=== PATIENT | male | born 1940 | race Caucasian/White ===

== ENCOUNTER 2023-05-14 12:15 | Emergency (ER) | payer MEDICARE, OTHER ==
[2023-05-14] MEDS: Iopamidol 612 MG/ML 100 ML Bottle IVPUSH ONE (12:28)
[2023-05-14 12:34] LABS: BASOPHILS PERCENT AUTO 0.3 % (0.0-1.0); EOSINOPHILS PERCENT AUTO 0.8 % (1.0-3.0); HEMATOCRIT 35.4 % (40.0-54.0); HEMOGLOBIN 11.7 g/dL (14.0-18.0); LYMPHOCYTES PERCENT AUTO 22.1 % (20.5-50.1); MEAN CORPUSCULAR HEMOGLOBIN 27.9 pg (27.0-34.0); MEAN CORPUSCULAR HGB CONC 33.1 g/dL (33.0-35.0); MEAN CORPUSCULAR VOLUME 84.5 fL (80-100); MONOCYTES PERCENT AUTO 17.1 % (2-8); NEUTROPHILS PERCENT AUTO 59.7 % (42.2-75.2); PLATELET COUNT,PLT 174 10^3/uL (150-450); RED BLOOD CELL COUNT 4.19 10^6/uL (4.6-6.2); WHITE BLOOD CELL COUNT,WBC 6.3 10^3/uL (5.0-10.0)
[2023-05-14 12:49] LABS: ALBUMIN 3.8 g/dL (3.4-5.0); ANION GAP 13.2 mEq/L (7-13); BILIRUBIN TOTAL 0.6 mg/dL (0.2-1.0); BUN/CREATININE RATIO 10.3 (No establ ref range); CREATININE 1.45 mg/dL (0.70-1.30); POTASSIUM,K 4.2 mmol/L (3.5-5.1); PROTEIN TOTAL,TP 7.5 g/dL (6.4-8.2)
[2023-05-14 12:54] LABS: EST CRCL DRUG DOSING (CG) 44.6 mL/min
[2023-05-14] MEDS: Sodium Chloride 0.9% 1,000 ML IV ONE (12:54)
[2023-05-14] MEDS: Ondansetron 4 MG/2 ML SDV IVPUSH ONE (12:54)
[2023-05-14] MEDS: fentaNYL 100 MCG/2 ML SDV IVPUSH ONE ×2 (12:54)
[2023-05-14] MEDS: Sodium Chloride 0.9% 10 ML Syringe FLUSH PRN (12:55)
== END 2023-05-14 15:21 ==
LOC: DL.ED 12:15
DX: S06.5X0A Traumatic subdural hemorrhage without loss of consciousness, initial encounter (principal); S37.092A Other injury of left kidney, initial encounter; Z95.1 Presence of aortocoronary bypass graft; Z79.82 Long term (current) use of aspirin; Z79.899 Other long term (current) drug therapy; V48.5XXA Car driver injured in noncollision transport accident in traffic accident, initial encounter; Y93.89 Activity, other specified
CPT/HCPCS: 36415; 51702; 70450; 71260; 72125; 72128; 72131; 74177; 80053; 85025; 96374; 96375; 99285; 99285-25; J2405; J3010; J3490; Q9967

== ENCOUNTER 2023-05-30 14:46 | Observation (INO) | payer MEDICARE, OTHER ==
[2023-05-30 15:40] LABS: BASOPHILS PERCENT AUTO 0.3 % (0.0-1.0); EOSINOPHILS PERCENT AUTO 1.4 % (1.0-3.0); HEMATOCRIT 31.8 % (40.0-54.0); HEMOGLOBIN 10.6 g/dL (14.0-18.0); LYMPHOCYTES PERCENT AUTO 25.1 % (20.5-50.1); MEAN CORPUSCULAR HEMOGLOBIN 27.7 pg (27.0-34.0); MEAN CORPUSCULAR HGB CONC 33.3 g/dL (33.0-35.0); MEAN CORPUSCULAR VOLUME 83.2 fL (80-100); MONOCYTES PERCENT AUTO 23.1 % (2-8); NEUTROPHILS PERCENT AUTO 50.1 % (42.2-75.2); PLATELET COUNT,PLT 232 10^3/uL (150-450); RED BLOOD CELL COUNT 3.82 10^6/uL (4.6-6.2); WHITE BLOOD CELL COUNT,WBC 6.5 10^3/uL (5.0-10.0)
[2023-05-30 15:54] LABS: A/G RATIO 0.9; ALBUMIN 3.5 g/dL (3.4-5.0); ANION GAP 12.8 mEq/L (7-13); BILIRUBIN TOTAL 0.4 mg/dL (0.2-1.0); BUN/CREATININE RATIO 12.1 (No establ ref range); CALCIUM 8.9 mg/dL (8.5-10.1); CREATININE 1.4 mg/dL (0.70-1.30); EST CRCL DRUG DOSING (CG) 42.08 mL/min; POTASSIUM,K 3.8 mmol/L (3.5-5.1); PROTEIN TOTAL,TP 7.2 g/dL (6.4-8.2)
[2023-05-30] MEDS ORDERED: Ondansetron 4 MG/2 ML SDV IVPUSH PRN (17:25)
[2023-05-30] MEDS ORDERED: Magnesium Hydroxide 400 MG/5 ML Susp 30 ML Cup PO PRN (17:25)
[2023-05-30] MEDS ORDERED: Albuterol/Ipratropium 3.0-0.5 MG/3 ML Neb Soln NEB PRN (17:25)
[2023-05-30] MEDS ORDERED: HYDROmorphone 0.5 MG/0.5 ML Syringe IVPUSH PRN (17:25)
[2023-05-30] MEDS ORDERED: Sodium Chloride 0.9% 10 ML Syringe FLUSH PRN (17:25)
[2023-05-30] MEDS ORDERED: Polyethylene Glycol 3350 Powder 17 GM Packet PO PRN (17:25)
[2023-05-30] MEDS ORDERED: Sennosides/Docusate Sodium 50-8.6 MG Tab PO PRN (17:25)
[2023-05-30] MEDS ORDERED: Naloxone 2 MG/2 ML Syringe IVPUSH PRN (17:25)
[2023-05-30] MEDS ORDERED: Metoprolol Tartrate 5 MG/5 ML SDV IVPUSH PRN (17:28)
[2023-05-30] MEDS ORDERED: hydrALAZINE 20 MG/ML SDV IVPUSH PRN (17:28)
[2023-05-30] MEDS: Sodium Chloride 0.9% 1,000 ML IV SCH (20:00)
[2023-05-30] MEDS: atorvaSTATin 20 MG Tab PO SCH (20:02)
[2023-05-30] MEDS: Sodium Chloride 0.9% 10 ML Syringe FLUSH SCH (20:02)
[2023-05-30] MEDS: Lidocaine 5% 700 MG Patch TOP SCH (20:03)
[2023-05-31] MEDS: Ziprasidone Mesylate 20 MG Vial IM PRN
[2023-05-31 06:32] LABS: BASOPHILS PERCENT AUTO 0.4 % (0.0-1.0); EOSINOPHILS PERCENT AUTO 1.1 % (1.0-3.0); HEMATOCRIT 31.2 % (40.0-54.0); HEMOGLOBIN 10.2 g/dL (14.0-18.0); MEAN CORPUSCULAR HEMOGLOBIN 27.6 pg (27.0-34.0); MEAN CORPUSCULAR HGB CONC 32.7 g/dL (33.0-35.0); MEAN CORPUSCULAR VOLUME 84.3 fL (80-100); MONOCYTES PERCENT AUTO 17.4 % (2-8); NEUTROPHILS PERCENT AUTO 45.1 % (42.2-75.2); PLATELET COUNT,PLT 218 10^3/uL (150-450); WHITE BLOOD CELL COUNT,WBC 7.1 10^3/uL (5.0-10.0)
[2023-05-31 06:55] LABS: A/G RATIO 0.9; ALBUMIN 3.6 g/dL (3.4-5.0); ANION GAP 14.5 mEq/L (7-13); BILIRUBIN TOTAL 0.4 mg/dL (0.2-1.0); CALCIUM 8.9 mg/dL (8.5-10.1); CREATININE 1.3 mg/dL (0.70-1.30); EST CRCL DRUG DOSING (CG) 45.32 mL/min; MAGNESIUM 1.9 mg/dL (1.8-2.4); POTASSIUM,K 3.5 mmol/L (3.5-5.1); PROTEIN TOTAL,TP 7.5 g/dL (6.4-8.2)
[2023-05-31 08:53] LABS: APPEARANCE,URINE CLEAR (CLEAR); BILIRUBIN,URINE NEGATIVE (NEGATIVE); COLOR,URINE LIGHT YELLOW (YELLOW); GLUCOSE,URINE NEGATIVE (NEGATIVE); KETONES,URINE NEGATIVE (NEGATIVE); LEUKOCYTE ESTERASE,URINE SMALL (NEGATIVE); NITRITE,URINE NEGATIVE (NEGATIVE); OCCULT BLOOD,URINE NEGATIVE (NEGATIVE); PROTEIN,URINE NEGATIVE (NEGATIVE); UROBILINOGEN,URINE 0.2 mg/dL (0.2-1.0)
[2023-05-31 09:01] LABS: EPITHELIAL CELLS,URINE RARE /HPF (NOT SEEN)
[2023-05-31 09:02] LABS: BACTERIA,URINE RARE /HPF (0-FEW/HPF); RBC,URINE NOT SEEN /HPF (0-5)
[2023-05-31] MEDS: Acetaminophen 325 MG Tab PO PRN (19:56)
[2023-05-31] MEDS: Temazepam 15 MG Cap PO PRN (20:00)
[2023-06-01 06:51] LABS: BASOPHILS PERCENT AUTO 0.2 % (0.0-1.0); EOSINOPHILS PERCENT AUTO 0.6 % (1.0-3.0); HEMATOCRIT 32.3 % (40.0-54.0); HEMOGLOBIN 10.9 g/dL (14.0-18.0); LYMPHOCYTES PERCENT AUTO 16.2 % (20.5-50.1); MEAN CORPUSCULAR HEMOGLOBIN 28.1 pg (27.0-34.0); MEAN CORPUSCULAR HGB CONC 33.7 g/dL (33.0-35.0); MEAN CORPUSCULAR VOLUME 83.2 fL (80-100); MONOCYTES PERCENT AUTO 20.7 % (2-8); NEUTROPHILS PERCENT AUTO 62.3 % (42.2-75.2); PLATELET COUNT,PLT 216 10^3/uL (150-450); RED BLOOD CELL COUNT 3.88 10^6/uL (4.6-6.2); WHITE BLOOD CELL COUNT,WBC 6.2 10^3/uL (5.0-10.0)
[2023-06-02 06:55] LABS: BASOPHILS PERCENT AUTO 0.3 % (0.0-1.0); EOSINOPHILS PERCENT AUTO 0.9 % (1.0-3.0); HEMATOCRIT 34.6 % (40.0-54.0); HEMOGLOBIN 11.6 g/dL (14.0-18.0); LYMPHOCYTES PERCENT AUTO 17.5 % (20.5-50.1); MEAN CORPUSCULAR HGB CONC 33.5 g/dL (33.0-35.0); MEAN CORPUSCULAR VOLUME 83.4 fL (80-100); MONOCYTES PERCENT AUTO 20.7 % (2-8); NEUTROPHILS PERCENT AUTO 60.6 % (42.2-75.2); PLATELET COUNT,PLT 228 10^3/uL (150-450); RED BLOOD CELL COUNT 4.15 10^6/uL (4.6-6.2); WHITE BLOOD CELL COUNT,WBC 7.6 10^3/uL (5.0-10.0)
[2023-06-02 07:16] LABS: ALBUMIN 3.2 g/dL (3.4-5.0); ANION GAP 11.1 mEq/L (7-13); BILIRUBIN TOTAL 0.5 mg/dL (0.2-1.0); BUN/CREATININE RATIO 7.8 (No establ ref range); CALCIUM 8.8 mg/dL (8.5-10.1); CREATININE 1.15 mg/dL (0.70-1.30); EST CRCL DRUG DOSING (CG) 51.23 mL/min; MAGNESIUM 1.8 mg/dL (1.8-2.4); POTASSIUM,K 4.1 mmol/L (3.5-5.1); T4 FREE 1.27 ng/dL (0.76-1.46); TSH ULTRASENSITIVE 0.7 uIU/mL (0.36-3.74)
[2023-06-02 07:22] LABS: A/G RATIO 0.84
[2023-06-02 07:23] VITALS: PULSE 88
[2023-06-02] MEDS ORDERED: hydrALAZINE 20 MG/ML SDV IVPUSH PRN (09:13)
[2023-06-02] MEDS: Lisinopril 10 MG Tab PO SCH (09:48)
[2023-06-02] MEDS: Metoprolol Succinate 25 MG Tab.ER PO SCH (09:48)
[2023-06-02 09:49] VITALS: BP 151/86
== END 2023-06-02 11:47 | disposition home or self-care (01) ==
LOC: DL.ED 14:46 → DL.MS 16:03 → DL.ED 16:50 → DL.MS 06-02 10:02
PROVIDERS: ADMIT Internal Medicine; ATTEND Internal Medicine
DX: F07.81 Postconcussional syndrome (principal); G44.309 Post-traumatic headache, unspecified, not intractable; G47.00 Insomnia, unspecified; E87.8 Other disorders of electrolyte and fluid balance, not elsewhere classified; E87.1 Hypo-osmolality and hyponatremia; R63.0 Anorexia; E78.5 Hyperlipidemia, unspecified; I12.9 Hypertensive chronic kidney disease with stage 1 through stage 4 chronic kidney disease, or unspecified chronic kidney disease; I25.10 Atherosclerotic heart disease of native coronary artery without angina pectoris; N18.30 Chronic kidney disease, stage 3 unspecified; D63.8 Anemia in other chronic diseases classified elsewhere; K21.9 Gastro-esophageal reflux disease without esophagitis; N28.1 Cyst of kidney, acquired; N41.1 Chronic prostatitis; M54.50 Low back pain, unspecified; R53.1 Weakness; Z79.82 Long term (current) use of aspirin; Z79.899 Other long term (current) drug therapy; Z98.890 Other specified postprocedural states; V49.9XXA Car occupant (driver) (passenger) injured in unspecified traffic accident, initial encounter
CPT/HCPCS: 36415; 70450; 80053; 81001; 82306; 83735; 84439; 84443; 85025; 99285; A9270; J3486; J7030; 96372; G0378; J3490